=== PATIENT | female | born 2000 | race Caucasian/White ===

== ENCOUNTER 2018-07-24 16:42 | Emergency (ER) | payer OTHER ==
[~2018-07-24] VITALS: Ht 175.3 cm; Wt 68.0 kg
[~2018-07-24 16:42] MED LIST: PREDNISONE 20 M20 M1 PO; VENTOLIN HFA 1818 GM INH; ZPAK PO
[2018-07-24 17:15] LABS: URINE BLOOD 3+ (Negative); URINE CLARITY CLOUDY; URINE COLOR YELLOW; URINE GLUCOSE-RANDOM NEGATIVE (Negative); URINE KETONES TRACE (Negative); URINE LEUKOCYTES TRACE (Negative); URINE NITRITE NEGATIVE (Negative); URINE PROTEIN 2+ (Negative)
[2018-07-24 17:17] LABS: URINE BILIRUBIN 1+ (Negative)
[2018-07-24 17:18] LABS: ICTOTEST (BILI CONFIRMATORY) Negative (Negative)
[2018-07-24 17:30] LABS: SQUAMOUS >10 Many /LPF (0-3)
[2018-07-24 17:31] LABS: CASTS None Seen /LPF (None Seen); CRYSTALS None Seen /LPF (None Seen); MUCUS None Seen strn/LPF (None Seen); URINE RBC >20 Many /HPF (0-2); URINE WBC 0-5 Rare /HPF (0-5)
[2018-07-24 17:32] LABS: ABSOLUTE EOSINOPHILS 0.1 thou/uL (0.0-0.7); ABSOLUTE LYMPHOCYTES 2.4 thou/uL (0.8-5.3); ABSOLUTE MONOCYTES 0.3 thou/uL (0.0-1.2); BASOPHILS 0.6 %; EOSINOPHILS 1.2 %; HEMATOCRIT 43.3 % (37.0-47.0); HEMOGLOBIN 14.7 gm/dL (12.0-15.0); MCHC 33.9 g/dL (28.0-37.0); MCV 88.4 fL (80.0-100.0); MONOCYTES 5.2 %; MPV 8.6 fl. (7.2-11.1); NUCLEATED RBCS 0 /100WBC; PLATELET COUNT* 204 thou/uL (150-400); RDW-CV 13.2 % (10.5-14.5); WBC 5.7 thou/uL (4.0-11.0)
[2018-07-24 17:37] LABS: CALCIUM 9.2 mg/dL (8.5-10.1); CREATININE 0.8 mg/dL (0.6-1.3); POTASSIUM 3.6 mmol/L (3.5-5.1)
[2018-07-24 17:41] LABS: TOTAL BILIRUBIN 0.6 mg/dL (<0.1-1.0); TOTAL PROTEIN 7.9 g/dL (6.4-8.2)
[2018-07-24] MEDS ORDERED: TRAMADOL 50 MG50 MG PO (20:22)
[2018-07-24] MEDS ORDERED: NABUMETONE 750750 M1 PO (20:22)
[2018-07-24] MEDS ORDERED: KEFLEX500 M1 PO (20:22)
[2018-07-24] MEDS ORDERED: PYRIDIUM100 M1 PO (20:22)
[2018-07-24 20:35] VITALS: BP 107/62
== END 2018-07-24 20:42 | disposition home or self-care (01) ==
LOC: M.ERS 16:42
PROVIDERS: Nurse Practitioner Family
DX: N39.0 Urinary tract infection, site not specified (principal); N83.201 Unspecified ovarian cyst, right side; G43.909 Migraine, unspecified, not intractable, without status migrainosus; M54.9 Dorsalgia, unspecified; G89.29 Other chronic pain; F17.210 Nicotine dependence, cigarettes, uncomplicated